=== PATIENT | female | born 1990 | race Caucasian/White ===

== ENCOUNTER → 2020-05-15 | Outpatient (CLI) | payer OTHER | LOC: LAB 11:43 | DX: D89.89 Other specified disorders involving the immune mechanism, not elsewhere classified (principal); D68.62 Lupus anticoagulant syndrome; R76.8 Other specified abnormal immunological findings in serum; R76.0 Raised antibody titer; R79.82 Elevated C-reactive protein (CRP); D64.9 Anemia, unspecified; R50.9 Fever, unspecified; E55.9 Vitamin D deficiency, unspecified; R53.83 Other fatigue | CPT/HCPCS: 36415; 82728; 83520 ==